=== PATIENT | male | born 1995 | race Two or more races ===

== ENCOUNTER 2021-03-22 10:18 | Emergency (ER) | payer SELFPAY ==
[~2021-03-22] VITALS: Ht 180.3 cm; Wt 99.8 kg
[2021-03-22 10:21] VITALS: BP 148/99
[2021-03-22] MEDS ORDERED: ACETAMINOPHEN 500 MG TAB PO ONE (11:45)
== END 2021-03-22 11:53 | disposition home or self-care (01) ==
LOC: ER 10:18
DX: S01.01XA Laceration without foreign body of scalp, initial encounter (principal); W22.8XXA Striking against or struck by other objects, initial encounter; Y93.89 Activity, other specified; Y92.89 Other specified places as the place of occurrence of the external cause; Y99.8 Other external cause status
CPT/HCPCS: 12001

== ENCOUNTER 2024-08-22 12:10 | Emergency (ER) | payer MEDICAID, OTHER ==
[~2024-08-22] VITALS: Ht 180.3 cm; Wt 80.0 kg
[2024-08-22] MEDS: ACETAMINOPHEN 325 MG TAB PO ONE (14:40)
[2024-08-22] MEDS: KETOROLAC TROMETH 60MG/2ML VIAL IM ONE (14:41)
[2024-08-22 14:45] VITALS: BP 130/79; PULSE 88; RESP 18; O2SAT 98
[2024-08-22] MEDS ORDERED: ACET650T12 PO (15:12)
[2024-08-22] MEDS ORDERED: KETO10TA PO (15:12)
[2024-08-22 16:35] VITALS: TEMP 98.7
== END 2024-08-22 16:42 | disposition home or self-care (01) ==
LOC: ER 12:12
DX: S80.01XA Contusion of right knee, initial encounter (principal); S60.222A Contusion of left hand, initial encounter; S60.221A Contusion of right hand, initial encounter; R07.89 Other chest pain; M25.571 Pain in right ankle and joints of right foot; R51.9 Headache, unspecified; Z79.899 Other long term (current) drug therapy; V28.49XA Other motorcycle driver injured in noncollision transport accident in traffic accident, initial encounter; Y93.I9 Activity, other involving external motion; Y92.89 Other specified places as the place of occurrence of the external cause; Y99.8 Other external cause status
CPT/HCPCS: 70450; 71250; 72125; 73562; 73610; 74176; 96372; 99285; J1885